=== PATIENT | female | born 1955 | race Caucasian/White ===

== ENCOUNTER → 2018-03-23 09:19 | Outpatient (CLI) | payer OTHER, SELFPAY ==
[2018-03-23 09:46] LABS: Hematocrit 39.6 % (37-47); Hemoglobin 12.8 g/dl (12.0-15.0); Mean Corp Hgb Conc 32.3 g/gl (32-36); Mean Corpuscular Hgb 31.9 pg (27.0-32.0); Mean Corpuscular Volume 98.8 fL (81-99); Mean Platelet Vol. 10.6 fl (6.2-12.0); Platelet Count 365 K/mm3 (150-450); RBC Distribution Width CV 14.3 % (11.6-14.6); Red Blood Count 4.01 M/mm3 (4.2-5.4)
[2018-03-23 09:50] LABS: Scan Indicated on CBC? Y/N NO
[2018-03-23 10:13] LABS: Cholesterol 166 mg/dL (200); Glucose 83 mg/dL (74-106); High Density Lipoprotein 58 mg/dL; Triglycerides 69 mg/dL; Very Low Density Lipoprotein 14 mg/dL (5-40)
--- OUTSIDE RECORDS SUMMARY | 2018-06-24 10:30 | XMS RPT_ITS ---
:1955 Author Organization OHIP Care Team Providers Name Role Phone WILMAR LOUIS CNP Attending Unavailable JUVENAL GOODE Primary Care Unavailable Wilmar Louis TOLL LINEMAN-[place] Attending Unavailable Wilmar Louis TOLL LINEMAN-C Referring Unavailable Wilmar Louis NP-[place] Primary Care Unavailable PROBLEMS PROBLEMS DATE TYPE CONDITION / CODE ATTENDING STATUS SOURCE 03/23/2018 Unknown Z00.00 - Encounter Horace Louis Zeenat for general adult Wilmar Abbott TOLL LINEMAN-[place] [facility] without abnormal Repository findings / Z00.00(ICD-10) 03/23/2018 Unknown Z13.6 - Encounter Heriberto Active Zeenat for screening for Wilmar Abbott TOLL [place] [facility] cardiovascular Hospital disorders / Repository Z13.6(ICD-10) 03/23/2018 Unknown E55.9 - Vitamin D Heriberto Active Zeenat deficiency, Wilmar Abbott TOLL LINEMAN-C [facility] unspecified / Hospital E55.9(ICD-10) Repository PROCEDURES PROCEDURES No Procedure Records FoundRESULTS RESULTS CBC-COMPLETE BLOOD CNT Collected: 03/23/2018 Status: F Source: ZEENAT NO DIFF 9:27 AM [facility] HOSPITAL REPOSITORY TYPE CODE TESTS RESULT OUT OF RANGE REFERENCE UNITS LAB L100.1000 4.4-11.0 K/mm3 Normal WBC 7.0 LAB L100.1200 4.2-5.4 M/mm3 Low RBC 4.01 LAB L100.1300 12.0-15.0 g/dl Normal HGB 12.8 LAB L100.1400 37-47 % Normal HCT 39.6 LAB L100.1500 81-99 fL Normal MCV 98.8 LAB L100.1600 27.0-32.0 pg Normal MCH 31.9 LAB L100.1700 32-36 g/gl Normal MCHC 32.3 LAB L100.1810 11.6-14.6 % Normal RDW CV 14.3 LAB L100.1820 35.1-43.9 fl High RDW SD 51.0 LAB L100.1900 150-450 K/mm3 Normal PLT 365 LAB L100.2000 6.2-12.0 fl Normal MPV 10.6 Performed By: #### L100.0500 #### [facility] [address] [place], [place], [address] LIPID PROFILE Collected: 03/23/2018 Status: F Source: SHELBY 9:27 AM [facility] REPOSITORY TYPE CODE TESTS RESULT OUT OF RANGE REFERENCE UNITS LAB L501.4900 200 mg/dL Normal CHOL 166 Result Comment: <200 mg/dL Desirable 200-240 mg/dL Borderline >240 mg/dL High Risk LAB L501.5000 mg/dL Normal TRIG 69 Result Comment: The drugs N-Acetylcysteine and Metamizole may falsely depress this assay. Serum Triglycerides Reference Interval Normal <150 mg/dL Borderline high 150 - 199 mg/dL High 200 - 499 mg/dL Very High > or = 500 mg/dL LAB L501.6400 mg/dL Normal HDL 58 Result Comment: The drugs N-Acetylcysteine and Metamizole may falsely depress this assay. Reference Range HDL <40 mg/dL Low HDL Cholesterol HDL >or= 60 mg/dL High HDL Cholesterol LAB L501.6500 0-130 mg/dL Normal LDL 94 LAB L501.6600 5-40 mg/dL Normal VLDL 14 Performed By: #### L500.4100, L501.0100 #### [facility] [address] [facility]. [place], [place], [id number] GLUCOSE Collected: 03/23/2018 Status: F Source: SHELBY 9:27 AM [facility] REPOSITORY TYPE CODE TESTS RESULT OUT OF RANGE REFERENCE UNITS LAB L501.0100 74-106 mg/dL Normal GLU 83 Result Comment: Please note revised GLUCOSE reference range effective 2017. Performed By: #### L500.4100, L501.0100 #### [facility] [address] [place], [address] VITAMIN D,25 HYDROXY Collected: 03/23/2018 Status: F Source: SHELBY 9:27 AM [facility] REPOSITORY TYPE CODE TESTS RESULT OUT OF REFERENCE UNITS RANGE LAB L506.1000 29.95-100.01 ng/mL Low Vitamin D 28.0 25-OH Result Comment: Vitamin D 25(OH) Status Range Deficiency <20 ng/mL (50nmol/L) Insuffciency 20 - 30 ng/mL (50 - 75 nmol/L) Sufficiency 30 - 100 ng/mL (75 - 250 nmol/L) Toxicity >100 ng/mL (>250 nmol/L) Performed By: #### L506.1000 #### [facility] [address] [place], [address] ID MAMMOGRAM SCREENING Observed: 03/15/2018 Status: F Source: [facility] BILATERAL W/LALA 10:30 AM FOUNDATION REPOSITORY ORIGINAL FROM: [place] [address] PROCEDURE FOR: ALINE DE LEON [address] [place] [address] Home: PID#: [id number] Exam#: [id number] : 1955 Age: 62 TO: WILMAR LOUIS APRN [place] [id number] #[id number] BILATERAL DIGITAL SCREENING MAMMOGRAM 3D/2D WITH CAD WITH MEDIOLATERAL OBLIQUE CRANIOCAUDAL: 03/15/2018 Comparison is made to exams dated: 02/09/2017 mammogram and 10/09/2015 mammogram - [facility]. The tissue of both breasts is heterogeneously dense. Current study was also evaluated with a Computer Aided Detection (CAD) system. There are benign scattered calcifications in both breasts. No significant masses, calcifications, or other findings are seen in either breast. There has been no significant interval change. IMPRESSION: BENIGN There is no mammographic evidence of malignancy. 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): RT RANDI (R)(M), [facility] letter sent: Normal BI-RADS 1&2 Mammogram BI-RADS: 2 Benign ALLERGIES ALLERGIES DATE TYPE / CODE NAME / CODE REACTION SEVERITY SOURCE 09/28/2014 Drug No Known Unknown [facility] Allergy/4160 Allergies/F00 Hospital 14805(SNOMED 4131964(RXNOR Repository CT) M) ENCOUNTERS ENCOUNTERS ADMIT/DISCHARGE ACCOUNT NUMBER ADMITTING ENCOUNTER LOCATION SOURCE CLASS 03/23/2018 [id number] Ambulatory [facility] ding:LAB Repository 03/15/2018/03/15/20 [id number] Ambulatory BBuilding: [address] Repository PAYERS PAYERS ENCOUNTER GUARANTOR PAYER SUBSCRIBER SOURCE 03/23/2018 DAYANA [id number] Primary [facility] DEBORAH STAPPLE Insurance:MEDICAL LONGDOB: [facility] [id number] [facility] [address]Ums: (330) Number: Repository [phone] (HP) [id number] Date:[id number] [address]PA: 03/23/2018 Secondary NOT GIVENUNK Zeenat Insurance:SELF PAY [facility] Number: Effective Repository Date:2018-03-23 03/15/2018 ALINE K Primary [facility] LONGDOB: Insurance:MEDICAL LONGDOB: [facility] [address] [id number] Repository deborah stAPPLE Number: deborah stAPPLE [place] [id number] [place], [place] [address]Qsj: (330) Date:2018-03-01 [address]19[address]Nhn: [id number] [phone] ()Tel: [phone]) Name:BPO B[address] () (WP) [address] [place], [place] [phone] (WP) [address]IQ:
== END ==
PROVIDERS: Family Provider Nurse Practitioner Family; PCP Nurse Practitioner Family; Referring Provider Nurse Practitioner Family; Visit Provider Nurse Practitioner Family
DX: Z00.00 Encounter for general adult medical examination without abnormal findings (principal); Z13.1 Encounter for screening for diabetes mellitus; Z13.6 Encounter for screening for cardiovascular disorders; E55.9 Vitamin D deficiency, unspecified
CPT/HCPCS: 36415; 80061; 82306; 82947; 85027

== ENCOUNTER → 2018-11-18 16:04 | Outpatient (CLI) | payer OTHER, SELFPAY ==
--- NOTE | 2018-11-18 | IMM_PTH ---
PATIENT: ALINE DE LEON LOC: [facility] U#:[id number] AGE/SX: 69/F ROOM: RE11/18/[address]: Dr. Sujit Britton MD : 1955 BED: DIS: SPEC #: [id number] RECD: 11/22/18 09:50 STATUS: SULEMA REQ #: [id number] ANAND: 11/18/18 00:[address]: Sujit Britton DEPT: IMMUNOHISTOCHEMISTRY RECD BY: Sowmya Kramer ENTERED: 11/22/18 09:52 SP TYPE: IMMUNO OTHR DR: Wilmar Louis, PRODUCTION ADMINISTRATOR-C Tissues: A - Duodenum, NOS B - Stomach, NOS Procedures: CD20 (add) CD45 (add) CD5 (add) CD79A (add) H.PYLORI (add) CD3 (initial) PHYSICIAN & INSTITUTION [place] [address] SPECIMEN INFORMATION: Tissue Source: A - Duodenal biopsy, B - Gastric antrum/body Clinical Info: Abdominal pain, weight loss Specimen Number: [id number] A & B CPT code: 65395 x2, 12845 x9 METHODOLOGY: Deparaffinized sections of prefer/formalin-fixed tissue or PAP/DQ stained slides are incubated with monoclonal/polyclonal antibodies/oligonucleotide probes. Localization is made via biotin free immunoperoxidase method. Appropriate controls are performed and reacted as expected. Results on target cell population are indicated in the following table: RESULTS: ANTIBODY / CLONE RESULT Block A CD3 (PS1) positive CD5 (SP10) positive CD20 (L26) positive CD45 (RP2/18) positive CD79a (11E3) positive Block B CD3 (PS1) positive CD5 (SP10) positive CD20 (L26) positive CD45 (RP2/18) positive CD79a (11E3) positive H Pylori (polyclonal) negative These tests were developed and their performance characteristics determined by [facility]. They may not have been cleared or approved by the U.S. Food and Drug Administration. The FDA has determined that such clearance or approval is not necessary. INTERPRETATION: A. Duodenal biopsy: Lymphoid aggregates, polytypic in nature, favor benign. Negative for involvement by lymphoma. B. Gastric antrum/body, biopsy: Lymphoid aggregates, polytypic in nature, favor benign. Negative for involvement by lymphoma. Negative for Helicobacter pylori organisms. SJ:hyacinth 11/22/18
--- NOTE | 2018-11-18 08:50 | EGD_PTH ---
PATIENT: ALINE DE LEON [facility]: [facility]#:[id number] AGE/SX: 69/F ROOM: RE11/18/[address]: Dr. Sujit Britton MD : 1955 BED: DIS: SPEC #: [id number] RECD: 11/18/18 15:23 STATUS: SULEMA TEO #: [id number] ANAND: 11/18/18 08:[address]: Sujit Britton DEPT: SURGICAL PATHOLOGY RECD BY: Stacy Roger ENTERED: 11/21/18 08:36 SP TYPE: EGD BIOPSY NATHAN DR: Wilmar Louis, CORRECTIONS IDENTIFICATION TECHNICIAN-C [facility] Tissues: A - Duodenum, NOS B - Gastric mucous membrane Procedures: Surgery Specimen Level IV HEADER OPERATION: EGD biopsy PRE-OP DIAGNOSIS: R10.9, abdominal pain, weight loss, celiac TISSUE SUBMITTED: A. Duodenal biopsy, rule out celiac and lymphoma, B. Gastric antrum/body, rule out gastritis MICROSCOPIC DIAGNOSIS A. Duodenal biopsy: Consistent with celiac disease. Negative for involvement by lymphoma. See microscopic description and comment. B. Gastric antrum/body, biopsy: Consistent with chronic lymphocytic gastritis. Negative for involvement by lymphoma. See microscopic description and comment. SJ:rg 11/22/18 COMMENT A. Immunohistochemistry ([id number]) supports the above diagnosis. B. Immunohistochemistry ([id number]) supports the above diagnosis and negative for H.pylori organisms.. Correlation with clinical, endoscopic findings and appropriate follow up are necessary.. MICROSCOPIC DESCRIPTION Slides are reviewed. A. The specimen shows fragments of duodenal mucosa with flattening of villi, increased number of intraepithelial lymphocytes and moderate chronic inflammatory cells infiltrate in the lamina propria and lymphoid aggregates. B. The specimen shows fragments of gastric mucosa with increased number of intraepithelial lymphocytes and moderate chronic inflammation and lymphoid aggregates. GROSS DESCRIPTION A - Received in fixative is one container labeled with the patient's name and designated duodenal biopsy. The specimen consists of multiple irregular fragments of light shi soft tissue that in aggregate measure 2 x 0.5 x 0.1 cm. The specimen is totally submitted in one cassette. B - Received in fixative is one container labeled with the patient's name and designated gastric antrum/body biopsy. The specimen consists of multiple irregular fragments of light shi soft tissue that in aggregate measure 1.5 x 0.3 x 0.1 cm. The specimen is totally submitted in one cassette. / SJ:rg 11/21/18 TC: CPT: 64650 x2
== END ==
PROVIDERS: Family Provider Nurse Practitioner Family; PCP Nurse Practitioner Family; Referring Provider Internal Medicine Gastroenterology; Visit Provider Internal Medicine Gastroenterology
DX: R10.9 Unspecified abdominal pain (principal); R63.4 Abnormal weight loss
CPT/HCPCS: 88305; 88341; 88342

== ENCOUNTER → 2018-11-23 08:30 | Outpatient (CLI) | payer OTHER, SELFPAY ==
[2018-11-24 16:07] LABS: Endomysial Antibody IgA Positive (Negative)
[2018-11-25 13:37] LABS: Immunoglobulin A 287 mg/dL (87-352); t-Transglutaminase IgA >100 U/mL (0-3)
== END ==
PROVIDERS: Family Provider Nurse Practitioner Family; PCP Nurse Practitioner Family; Referring Provider Internal Medicine Gastroenterology; Visit Provider Internal Medicine Gastroenterology
DX: K90.0 Celiac disease (principal)
CPT/HCPCS: 36415; 82306; 82784; 83516; 86255

== ENCOUNTER 2019-02-20 10:57 | Day surgery (SDC) | payer OTHER, SELFPAY ==
[2019-02-06 09:35] VITALS: BMI 25.2
--- NOTE | 2019-02-06 09:35 | HP_ITS ---
Intake Vital Signs 02/06/19 Body Mass Index (BMI) 25.2 02/06/19 Height 5 ft 4 in 02/06/19 Weight: 118 lb 02/06/19 Body Mass Index (BMI) 20.2 02/06/19 Blood Pressure 122/73 H 02/06/19 Blood Pressure Location Rt brachial 02/06/19 Blood Pressure Position Sitting 02/06/19 Respiratory Rate 16 02/06/19 Pulse Rate 75 02/06/19 Pulse Source Monitor 02/06/19 Temperature 97.9 F 02/06/19 Temperature Source Oral 02/06/19 Pulse Ox 100 02/06/19 Oxygen Delivery Method room air Intake Visit Reasons: Cholecystitis Chief Complaint: Multiple trauma - Pelvic fx, lumbar, fx, rib fx, scapular fx Allergies No Known Allergies Allergy (Verified 02/06/19 09:32) [facility] Medical History Hiatal hernia (Acute) Acid reflux (Acute) Constipation (Acute) Nausea & vomiting (Acute) Celiac disease (Acute) Pain (Acute) Constipation due to pain medication (Acute) Anemia (Acute) Fractures involving multiple body regions (Acute) Surgical History Hx of section (Acute) History of lumpectomy of right breast (Acute) Hx of appendectomy (Acute) Hx of colonoscopy (Acute) History of esophagogastroduodenoscopy (EGD) (Acute) Family History Mother Asthma Heart disease Hypertension CVA (cerebral vascular accident) Thyroid disorder Father Heart disease CVA (cerebral vascular accident) Social History (Updated 02/06/19 @ 09:35 by Woo Pereira MD) Smoking Status: Never smoker second hand exposure: No alcohol intake: never substance use type: does not use caffeine: Yes what type of physical activity do you participate in: none frequency: does not exercise HPI HPI HPI: ALINE DE LEON is a 63 F who presents to the office today for HPI HPI Surgical H&P: Yes HPI: ALINE DE LEON is a 63 F who presents to the office today for Evaluation of biliary colic this is a 63-year-old white female who has had multiple episodes of nausea and vomiting she has been worked up with an EGD which showed a small hiatal hernia she has been placed on PPIs twice daily yet she is still having difficulty with nausea and vomiting and at times it can be many hours after she eats. She has a diagnosis of celiac disease for many years but has been effectively treating herself by eliminating gluten. She has had a CAT scan of the abdomen and pelvis which showed either a stone or polyp in her gallbladder. It also showed a small hiatal hernia which was also confirmed with the EGD. She is afraid to eat now. She is losing weight now. Exam Const General: no acute distress, well developed, well hydrated Orientation: oriented to person, oriented to place, oriented to time [facility] Head: normocephalic, atraumatic Ears: external ears normal Mouth: moist mucous membranes Eyes Sclera: sclerae normal Pupils: normal by confrontation Neck Neck: no lymphadenopathy noted Neck mass: No Thyroid: thyroid normal, symmetrical Chest Chest palpation & inspection: normal inspection of the chest Resp Effort & Inspection: normal respiratory effort Auscultation: clear to auscultation bilaterally Percussion: percussion normal Cardio Rate: regular rate Rhythm: regular rhythm GI Palpation: soft, no hepatosplenomegaly, no masses, nontender Rectal Exam: other Other: Rectal exam deferred. Extrem General: normal to inspection, no clubbing, cyanosis or edema Assessment & Plan Problems 1. Non-intractable vomiting with nausea, unspecified vomiting type R11.2 2. Calculus of gallbladder with chronic cholecystitis without obstruction K80.10 Plan Reviewed the anatomy with the patient and discussed the procedure: Robotically assisted laparoscopic cholecystectomy with possible cholangiograms, possible open. Review risks including but not limited to bleeding, infection, hernia, bile leak, retained gallstones requiring another procedure ERCP- Endoscopic Retrograde Cholangiopancreatography, injury to another organ (bile ducts, common bile duct, small bowel, etc.) and conversion to an open procedure. All questions were answered. Medications Discontinued: potassium chloride ER Discontinued Reason: Pt no longer taking 20 mEq PO DAILYCM 30 tabs 0RF lidocaine 5% Discontinued Reason: Pt no longer taking 2 patches topical DAILY 60 patches 0RF oxycodone Discontinued Reason: Pt no longer taking 10 mg (2 x 5 mg) PO Q6H 30 tabs 0RF Coding Level of Care Code Off vis,new,level 3 Diagnoses Non-intractable vomiting with nausea, unspecified vomiting type R11.2 ??Vomiting type: unspecified ??Vomiting Intractability: non-intractable Calculus of gallbladder with chronic cholecystitis without obstruction K80.10 ??Cholelithiasis location: gallbladder ??Cholecystitis acuity: chronic 02/06/19 0935 <Electronically signed by Woo borrero MD> Date _ Woo Pereira MD I have re-examined the patient. There are no clinical changes since date of exam.
[2019-02-20] VITALS (7 sets, daily range): BP systolic 134–176; BP diastolic 65–91; PULSE 66–82; RESP 14–18; TEMP 36.2–36.7; O2SAT 93–100; BMI 19.9
--- NOTE | 2019-02-20 11:16 | EKG12_ITS ---
Test Reason : PREOP Blood Pressure : / mmHG Vent. Rate : 065 BPM Atrial Rate : 065 BPM P-R Int : 142 ms QRS Dur : 082 ms QT Int : 416 ms P-R-T Axes : 072 056 067 degrees QTc Int : 432 ms Normal sinus rhythm with sinus arrhythmia Normal ECG Confirmed by ANKITA CONNER, YOLY ([id number]), communications editor TATIANNA PEREZ ([id number]) on 02/22/2019 2:35:00 PM Referred By: Woo Pereira Confirmed By:YOLY LUCIANO MD
[2019-02-20 11:29] LABS: Hemoglobin 12.3 g/dL (12.0-15.0); Mean Corp Hgb Conc 32.4 g/dL (32-36); Mean Corpuscular Hgb 31.7 pg (27.0-32.0); Mean Corpuscular Volume 97.9 fL (81-99); Mean Platelet Vol. 10.3 fl (6.2-12.0); Platelet Count 332 K/mm3 (150-450); RBC Distribution Width CV 13.2 % (11.6-14.6); RBC Distribution Width SD 47.6 fl (35.1-43.9); Red Blood Count 3.88 M/mm3 (4.2-5.4); White Blood Count 6.1 K/mm3 (4.4-11.0)
[2019-02-20 11:42] LABS: Anion Gap 4 (5-15); BUN 12 mg/dL (7-18); BUN/Creat Ratio 25.9 RATIO (10-20); Chloride 107 mmol/L (98-107); Creatinine, Serum 0.46 mg/dL (0.55-1.02); EST Glomerular Filtration Rate 144 mL/min (>60); Est Glom Filt Rate - Afr Amer 175 mL/min (>60); Glucose 90 mg/dL (74-106); Potassium 3.9 mmol/L (3.5-5.1); Sodium Level 139 mmol/L (136-145)
[2019-02-20] MEDS: Lactated Ringers 1,000 ML 100 ML IV ×4 (12:00→12:22)
[2019-02-20] MEDS: Cefazolin 2 GM in 0.9% Normal Saline 100 ML IV (12:50)
--- NOTE | 2019-02-20 13:00 | GALL_PTH ---
PATIENT: ALINE DE LEON LOC: [facility] U#:[id number] AGE/SX: 63/F ROOM: RE02/20/[address]: Dr. Woo Pereira MD : 1955 BED: DIS: 02/20/2019 SPEC #: [id number] RECD: 02/20/19 15:52 STATUS: SULEMA RELeón #: [id number] ANAND: 02/20/19 13:[address]: Woo Pereira DEPT: SURGICAL PATHOLOGY RECD BY: Jefferson Gerard ENTERED: 02/21/19 08:19 SP TYPE: JUAN JOSE EVANS DR: Wilmar Louis, MEDICAL FILE CLERK-C Tissues: Gallbladder, NOS Procedures: Surgery Specimen Level III HEADER OPERATION: Robotic laparoscopic cholecystectomy PRE-OP DIAGNOSIS: Non-intractable vomiting with nausea; calculus of gallbladder, chronic cholecystitis TISSUE SUBMITTED: Gallbladder MICROSCOPIC DIAGNOSIS Gallbladder, cholecystectomy: Minimal chronic cholecystitis. No stones are identified in the container or in the gallbladder. JACQUI:hyacinth 02/22/19 MICROSCOPIC DESCRIPTION Slides are reviewed. GROSS DESCRIPTION Received is one container labeled with the patient's name and designated gallbladder. The specimen consists of a gallbladder measuring 8 cm in length and 4 cm in diameter. The external surface is pink-shi, smooth and glistening for the most part. Focally it is granular, hemorrhagic and contains cautery artifact. The gallbladder contains green-yellow mucoid bile. No stones are identified in the container or in the gallbladder. The mucosa is bile-stained and without any mass lesions. The gallbladder wall measures 0.1 cm in thickness. Monument Erector sections from the gallbladder and the cystic duct are submitted in one cassette. / JACQUI:hyacinth 02/21/19 TC:3 CPT: 25365
[2019-02-20] MEDS: Bupivacaine Mpf 0.5% 30 ML VIAL (13:17)
--- NOTE | 2019-02-20 13:54 | PCM.OPRPT ---
Problem List (1) Calculus of gallbladder with chronic cholecystitis without obstruction Status: Chronic (2) RUQ abdominal pain Status: Acute Report of Operation Date of Procedure: 02/20/19 Pre-Operative Diagnosis: Chronic cholecystitis with cholelithiasis. Right upper quadrant abdominal pain Post-Operative Diagnosis: Same Surgery/Procedure Performed:: Robotically assisted laparoscopic cholecystectomy Type of Anesthesia:: General Anesthesiologist: Jarett Mccurdy Estimated Blood Loss (mL): < 25 cc Fluids Replaced: 1400 cc LR Description of Procedure: Patient was brought into the operating room. Placed in the supine position. Under excellent general trach intubation bed was turned tangentially placed at a 45 degree angle then sterilely prepped and draped in usual fashion. Local was injected infra umbilically dissection was carried down to the fascia the fascia grasped with Diana varies needle was placed inside the abdomen the abdomen was insufflated to 15 torr. A 10/12 trocar was placed without difficulty. It was flank by 2 #8 trochars and then further laterally a #5 trocar was placed. All of these under direct visualization without injury to underlying structures. Robot was docked. Moderate amount of adhesions were taken down off of the gallbladder itself. Fundus was grasped and retracted in a cephalad direction. I dissected out the cystic duct with the use of right hook I dissected the cystic artery as well as posterior to this to the abdomen. Once I had the cystic duct and cystic artery completely dissected free hemoclips were placed on the duct and the duct was ligated in similar fashion the Hemalock were placed on the artery and the artery was ligated. I deliver the gallbladder from gallbladder bed with use of electrocautery had no spillage of bile or stones. Placed a specimen a specimen bag delivered through the umbilical port without difficulty. Electrocautery was used for good hemostasis in the base trochars were removed under direct visualization good hemostasis was noted. Fascia the umbilical port was closed with a [id number] stitch of 0 Vicryl. Skin incisions were closed with some particular stitches of 4-0 Monocryl. Steri-Strips were applied. Sterile dressings were applied. Patient tolerated the procedure well. - Admit VTE Documentation VTE Present on Admission: No VTE Mechan Device Prophylaxis: SCD's VTE Pharm Prophylaxis ordered?: No Reason prophylaxis not ordered:: Treatment Not Indicated
--- NOTE | 2019-02-20 13:57 | PCM.DC.GB ---
Discharge Diet: Light diet - advance as tolerated Discharge Activity: May Not Drive - for 2-3 days or while taking narcotic pain medications., - - Do not drive, work heavy equipment or sign legal documents for 24 hours. May shower in (days): 1 - with the bandage in place. Additional Activity Instructions:: Pain medication may cause nausea. You should typically eat light foods as you take your pain medications. Pain medication may also cause constipation. If this is a problem for you, please discuss with your doctor. Call your doctor if your incision/area has: Continuous Slow Oozing, Sudden Increased Bleeding, Increased Pain/ Swelling, Increased Redness, Foul Smelling Discharge Call your doctor if you observe: Fever of 101 or Higher Suture Line Care: Avoid Pulling/Pushing, Avoid Pinching/Bending Additional Dressing/Incision Instructions:: Leave operative bandaids on for 2 days. When you remove dressing, leave Steri-Strips on until your follow-up appointment, or until the Steri-Strips fall off on their own. Allergies/Adverse Reactions: Allergies No Known Allergies Allergy (Verified 02/20/19 11:48) Medications to take at Discharge calcium carbonate 500 mg calcium (1,250 mg) tablet 500 mg PO BID 02/06/19 ergocalciferol (vitamin D2) 50,000 unit capsule 50,000 unit PO QWEEK #13 cap 02/06/19 omeprazole 20 mg capsule,delayed release 20 mg PO BID cap 02/06/19 Oxycodone HCl/Acetaminophen [Percocet 5/325] 1 - 2 tablet PO Q4H PRN PRN 7 Days #30 tablet 02/20/19 The following prescriptions were given: Oxycodone HCl/Acetaminophen [Percocet 5/325] 1 - 2 tablet PO Q4H PRN PRN 7 Days #30 tablet PRN Reason: Pain Transmission Status: Sent to [id number] Primary Care Physician: Wilmar Louis, GUSTAVO-C [Primary Care Provider] - Test Results: Test results from this visit will be discussed in further detail at your follow-up appointment, if applicable. Please Follow Up With: Woo Pereira MD - Please call [phone] to schedule an appointment. When: 7 days after your surgery.
[2019-02-20] MEDS: Acetaminophen 325 MG Tablet PO (16:01)
[2019-02-20] MEDS: oxyCODONE 5 MG Tablet PO (16:01)
== END 2019-02-20 16:44 | disposition home or self-care (01) ==
LOC: SDC 10:57 → AC 11:29
PROVIDERS: Anesthesiology; Family Provider Nurse Practitioner Family; PCP Nurse Practitioner Family; Referring Provider Surgery; Visit Provider Surgery
PROC: 0FT44ZZ Resection of Gallbladder, Percutaneous Endoscopic Approach (ICD-10-PCS; CPT 47562; principal; 2019-02-20 12:45)
DX: K80.10 Calculus of gallbladder with chronic cholecystitis without obstruction (principal); K82.8 Other specified diseases of gallbladder; K21.9 Gastro-esophageal reflux disease without esophagitis; Z86.73 Personal history of transient ischemic attack (TIA), and cerebral infarction without residual deficits
CPT/HCPCS: 00790; 47562; S2900; 36415; 80048; 85027; 88304; 93005; J7120; J2405

== ENCOUNTER → 2019-03-23 09:18 | Outpatient (CLI) | payer OTHER, SELFPAY ==
[2019-02-20 11:49] VITALS: BMI 19.9
[2019-03-23 11:16] LABS: Vitamin D,25 Hydroxy 42.6 ng/mL (29.95-100.01)
[2019-03-23 11:31] LABS: Cholesterol 156 mg/dL (200); Glucose 82 mg/dL (74-106); High Density Lipoprotein 57 mg/dL; Triglycerides 85 mg/dL; Very Low Density Lipoprotein 17 mg/dL (5-40)
== END ==
PROVIDERS: Family Provider Nurse Practitioner Family; PCP Nurse Practitioner Family; Referring Provider Nurse Practitioner Family; Visit Provider Nurse Practitioner Family
DX: Z13.220 Encounter for screening for lipoid disorders (principal); Z13.1 Encounter for screening for diabetes mellitus; E55.9 Vitamin D deficiency, unspecified
CPT/HCPCS: 36415; 80061; 82306; 82947

== ENCOUNTER → 2019-04-18 10:01 | Outpatient (CLI) | payer OTHER, SELFPAY ==
[2019-02-20 11:49] VITALS: BMI 19.9
--- NOTE | 2019-04-18 10:18 | RAD_ITS ---
STUDY: X-RAY CHEST REASON FOR EXAM: Female, 63 years old. COUGH, SOB TECHNIQUE: PA and lateral views of the chest. COMPARISON: None. FINDINGS: The lungs are clear and expanded. There is no demonstrated pleural abnormality. Normal size heart. Normal mediastinum and natividad. Normal visualized pulmonary arteries. There are calcified plaques of the aortic arch. Normal visualized thoracic spine. Normal visualized ribs, clavicles, and shoulders. There is no demonstrated abnormality of the visualized soft tissue structures of the upper abdomen. RAD/Chest PA and Lateral IMPRESSION: Calcific plaques of the aortic arch. No acute cardiopulmonary disease process is seen. Electronically Signed: Michelet Jung MD at 23:12 EST , Service support ,
[2019-04-18 13:02] LABS: ALB/GLOB Ratio 0.8 RATIO (0.9-2.4); AST(SGOT) 29 U/L (15-37); Alanine Aminotransfer ALT/SGPT 40 U/L (13-56); Alkaline Phosphatase 153 U/L (45-117); Anion Gap 4 (5-15); BUN 8 mg/dL (7-18); BUN/Creat Ratio 15.9 RATIO (10-20); Calcium,Total 9.1 mg/dL (8.5-10.1); Chloride 108 mmol/L (98-107); EST Glomerular Filtration Rate 131 mL/min (>60); Est Glom Filt Rate - Afr Amer 158 mL/min (>60); Globulin 3.9 g/dL (2.2-4.2); Glucose 49 mg/dL (74-106); Potassium 4.4 mmol/L (3.5-5.1); Protein, Total 6.9 g/dL (6.4-8.2); Sodium Level 140 mmol/L (136-145)
[2019-04-18 13:45] LABS: Absolute Lymphocyte Count 2.29 X10^3/uL (0.83-4.51); Absolute Neutrophil Count 2.8 X10^3/uL (2.0-7.7); Basophil# 0.05 X10^3/uL; Basophil% 0.8 % (0-1); Eosinophil# 0.55 X10^3/uL; Eosinophils% 8.4 % (0-5); Hematocrit 39.3 % (37-47); Hemoglobin 12.4 g/dL (12.0-15.0); Lymphocyte # 2.29 X10^3/ul (4.0); Lymphocyte % 34.9 % (19-41); Mean Corp Hgb Conc 31.6 g/dL (32-36); Mean Corpuscular Hgb 31.2 pg (27.0-32.0); Mean Platelet Vol. 10.2 fl (6.2-12.0); Monocyte# 0.82 X10^3/uL; Monocyte% 12.5 % (0-10); NRBC Flagged by Analyzer 0 % (0-5); Neutrophil # 2.83 X10^3/uL (2.7-7.7); Neutrophil % 42.9 % (47-70); Platelet Count 430 K/mm3 (150-450); RBC Distribution Width CV 13.5 % (11.6-14.6); RBC Distribution Width SD 49.1 fl (35.1-43.9); Red Blood Count 3.97 M/mm3 (4.2-5.4); White Blood Count 6.6 K/mm3 (4.4-11.0)
== END ==
PROVIDERS: Family Provider Nurse Practitioner Family; PCP Nurse Practitioner Family; Referring Provider Nurse Practitioner Family; Visit Provider Nurse Practitioner Family
DX: R06.2 Wheezing (principal); R05 Cough
CPT/HCPCS: 36415; 71046; 80053; 85025

== ENCOUNTER 2020-12-14 11:02 | Emergency (ER) | payer MEDICARE, BC, SELFPAY ==
[2020-12-14 11:03] VITALS: BP 188/84; PULSE 72; RESP 16; TEMP 36.7; O2SAT 100; BMI 22.3
--- NOTE | 2020-12-14 11:15 | EKG12_ITS ---
Test Reason : STROKE Blood Pressure : / mmHG Vent. Rate : 060 BPM Atrial Rate : 060 BPM P-R Int : 138 ms QRS Dur : 082 ms QT Int : 412 ms P-R-T Axes : 069 046 064 degrees QTc Int : 412 ms Normal sinus rhythm Normal ECG Confirmed by BUCK CONNER, LEON ([id number]), manuscript editor TITO CEBALLOS ([id number]) on 12/16/2020 1:30:19 PM Referred By: PC Confirmed By:LEON JANE MD
--- NOTE | 2020-12-14 11:15 | CT_ITS ---
STUDY: CT HEAD STROKE PROTOCOL W/O CONTRAST INJECTION REASON FOR EXAM: Female, 65 years old. Neuro deficit, acute, stroke suspected RADIATION DOSAGE (If Supplied By Facility): CTDIvol = ( 44 ) mGy, DLP = ( 745 ) mGycm TECHNIQUE: Transaxial CT imaging of the brain was performed without administration of intravenous contrast material. Individualized dose optimization techniques were used for this CT. COMPARISON: No relevant priors. FINDINGS: Normal soft tissue structures. Normal calvarium. Normal size ventricles and extra-axial spaces for the patient''s age. Normal white matter tracts of the cerebral hemispheres. Normal basal ganglia and thalami. Normal brainstem. Normal cerebellum. There is no intracranial hemorrhage. There are no findings of an acute ischemic infarction. Normal visualized paranasal sinuses. ASPECT score: 10 CT/STROKE Brain/Head without Cont IMPRESSION: No evidence of acute intracranial bleed, mass or ischemia. N.B. : The above Results were Read Back by Galo Majano DO to aleks rodríguez MD, and understanding confirmed on 12/14/2020 11:40:21 (ET). Electronically Signed: Galo Majano DO at 11:41 EDT , Service support ,
--- NOTE | 2020-12-14 11:17 | CT_ITS ---
STUDY: CTA HEAD AND NECK WITH CONTRAST REASON FOR EXAM: Female, 65 years old. Neuro deficit, acute, stroke suspected RADIATION DOSAGE (If Supplied By Facility): CTDIvol = ( 15.08 ) mGy, DLP = ( 460.04 ) mGycm TECHNIQUE: CT angiography was performed with a multi-detector CT scanner. Data acquisition was obtained from the skull base through the vertex following intravenous administration of IV 100mL Isovue-370. MIP images were reconstructed from the axial data set. Post-processing of the angiographic images was performed, with multiplanar reformation and 3D reconstruction. Individualized dose optimization techniques were used for this CT. COMPARISON: No relevant priors. FINDINGS: Normal bilateral petrous carotid arteries. Normal right cavernous carotid artery with a normal supraclinoid bifurcation. Normal left cavernous carotid artery with a normal supraclinoid bifurcation. There is non-visualization of the right A1 segment of the anterior cerebral arteries consistent with either aplastic development or an occlusion. Normal left A1 segments of the anterior cerebral artery. Normal intact anterior communicating artery (ACOM). Normal bilateral A2 segments of the anterior cerebral arteries. Normal right M1 and M2 segments of the middle cerebral arteries, with a normal M1 bifurcation. Normal left M1 and M2 segments of the middle cerebral arteries, with a normal M1 bifurcation. There is non-visualization of the right posterior communicating artery (PCOM). There is non-visualization of the left posterior communicating artery (PCOM). Right vertebral artery V4 segment terminates in the posterior circulation. Normal basilar artery with a normal basilar bifurcation. The visualized bilateral superior cerebellar (SCA) arteries are normal. Normal bilateral P1, P2 and visualized P3 segments of the posterior cerebral arteries. There is no demonstrated aneurysm of the [place]. There is no demonstrated abnormality of the visualized brain. AORTIC ARCH: Normal visualized aortic arch. Normal origins of the brachiocephalic, left common carotid, and left subclavian arteries. RIGHT CAROTID ARTERIES: Normal right common carotid artery (CCA). Normal right common carotid bulb. Normal origin of the right internal carotid (ICA) artery without a hemodynamically significant stenosis. Normal visualized cervical portion of the right internal carotid artery. Normal origin of the right external carotid artery (ECA). LEFT CAROTID ARTERIES: Normal left common carotid artery (CCA). Normal left common carotid bulb. Normal origin of the left internal carotid (ICA) artery without a hemodynamically significant stenosis. Normal visualized cervical portion of the left internal carotid artery. Normal origin of the left external carotid artery (ECA). VERTEBRAL ARTERIES: There is enhancement within the bilateral vertebral arteries with a small right vertebral artery, and a dominant left vertebral artery. Right V4 segment terminates to the posterior circulation. CT/STROKE CTA Head AND Neck W/Con IMPRESSION: No evidence of significant steno-occlusive disease or aneurysm. N.B. : The above Results were Read Back by Galo Majano DO to aleks rodríguez MD, and understanding confirmed on 12/14/2020 11:49:04 (ET). Electronically Signed: Galo Majano DO at 11:49 EDT , Service support ,
[2020-12-14 11:18] VITALS: BP 191/104; PULSE 81; RESP 16; O2SAT 99
--- NOTE | 2020-12-14 11:18 | ED.VIS.STROK ---
HPI History of Present Illness Chief Complaint: Neuro S/Sx Narrative Narrative: Presents with 1 hour of left facial droop and difficulty speaking which seems to have improved as she got to the ED. Apparently she has had some twitching around her left eye for about a month but no droop on the left face. She has no other weakness no paresthesias she has no confusion she has no vision changes. No recent fever chills cough or congestion. PFSH PFS Medical History Acid reflux Anemia Celiac disease Constipation Constipation due to pain medication Fractures involving multiple body regions Hiatal hernia Nausea & vomiting Pain Home Medications calcium carbonate 500 mg calcium (1,250 mg) tablet 500 mg PO BID 02/06/19 [History Last Taken Unknown] ergocalciferol (vitamin D2) 1,250 mcg (50,000 unit) capsule 50,000 unit PO CHAN #13 cap 02/06/19 [History Last Taken Unknown] Allergy/AdvReac Type Severity Reaction Status Date / Time No Known Allergies Allergy Verified 12/14/20 11:03 Family History Mother Asthma Heart disease Hypertension CVA (cerebral vascular accident) Thyroid disorder Father Heart disease CVA (cerebral vascular accident) Surgical History History of esophagogastroduodenoscopy (EGD) History of lumpectomy of right breast Hx laparoscopic cholecystectomy Hx of appendectomy Hx of section Hx of colonoscopy Social History (Updated 03/01/19 @ 10:34 by Diana CARABALLO PA-C) Smoking Status: Unknown if ever smoked second hand exposure: No alcohol intake: never substance use type: does not use caffeine: Yes what type of physical activity do you participate in: none frequency: does not exercise ROS ROS ED ROS Narrative Past medical history: Reviewed Medications: Reviewed Social history: Noncontributory Review of systems: All systems negative except as indicated General: No fever Eyes: No visual changes ENT: No upper airway congestion, normal voice Neck: No neck pain Cardiovascular: No chest pain Respiratory: No shortness of breath or cough Gastrointestinal: No abdominal pain, nausea vomiting or diarrhea Genitourinary: No dysuria Musculoskeletal: Denies myalgias no difficulty with ambulation Skin: No rash Neurological: No memory loss, confusion or any focal weakness. Left-sided facial droop which improved Psych: No recent behavioral changes Hematologic: No easy bleeding or easy bruising EXAM Physical Exam Narrative Exam Narrative: Physical exam General: Well nourished, Well developed, No Acute Distress Head: Normocephalic, Atraumatic Eyes: Conjunctiva not pale ENT: Moist mucous membranes Neck: Supple, Nontender, No lymphadenopathy Cardiovascular: Regular rate, Regular rhythm Respiratory: No distress, CTA bilaterally Abdomen: Soft, Nontender, Nondistended Back: Nontender, Normal Inspection. Negative for: CVA tenderness Extremities: Nontender, No edema Skin: Normal color, No rash Neurological: Alert, Normal Strength, Normal Sensation. Left facial droop. This is very subtle with only loss of nasolabial fold. Otherwise normal neurological exam. See NIH stroke scale below. Psychological: Normal affect Const Vital Signs: 12/14/20 11:03 12/14/20 11:18 12/14/20 11:28 Temperature 98.0 F Temperature Source Temporal Pulse Rate 72 81 Respiratory Rate 16 16 Blood Pressure 188/84 H 191/104 H Blood Pressure Mean 118 133 Pulse Ox 100 99 Oxygen Delivery Method Room Air Room Air Room Air 12/14/20 11:45 12/14/20 12:15 12/14/20 13:00 Temperature Temperature Source Pulse Rate 77 74 76 Respiratory Rate 16 16 16 Blood Pressure 173/86 H 177/99 H 175/85 H Blood Pressure Mean 115 125 115 Pulse Ox 99 98 98 Oxygen Delivery Method Room Air Room Air Room Air STROKE Vital Signs/Narrative: Vital Signs Temp Pulse Resp BP Pulse Ox 12/14/20 13:00 76 16 175/85 H 98 12/14/20 12:15 74 16 177/99 H 98 12/14/20 11:45 77 16 173/86 H 99 12/14/20 11:18 81 16 191/104 H 99 12/14/20 11:03 98.0 F 72 16 188/84 H 100 NIHSS Initial: 1a Level of Consciousness: 0 1b LOC Questions (Score 2 if aphasic/stupor): 0 1c LOC Commands (Only score 1st attempt): 0 2 Best Gaze (If aphasic, use reflexive mvmts.): 0 3 Visual: 0 4 Facial Palsy: 1 5 Motor Arm Left: 0 6 Motor Leg Right: 0 6 Motor Leg Left: 0 7 Limb ataxia (Only + if out of proportion): 0 8 Sensory (Aphasia/stupor=0 or 1, coma=2): 0 9 Best Language: 0 10 Dysarthria (mute, coma=2, intubated=UN): 0 11 Extinction and Inattention (only scored if +): 0 Total Score: 1 MDM MDM MDM Narrative Medical decision making narrative: Patient remained asymptomatic in the ED other than the slight decrease in the nasolabial folds. She actually had a couple episodes of what she was describing and these now seem like they are spasms. I discussed with stroke neurology who also saw the patient and agree that TPA is not needed. Patient had a normal MRI CTA of the head and neck and CT, I do not believe the patient would benefit from admission. Patient can follow-up. Lab Data Labs: Laboratory Results - last 24 hr 12/14/20 12/14/20 12/14/20 11:20 11:20 11:20 WBC 7.9 RBC 4.04 L Hgb 12.9 Hct 39.9 MCV 98.8 MCH 31.9 MCHC 32.3 RDW Std Deviation 49.3 H RDW Coeff of [place] 13.3 Plt Count 395 MPV 10.4 Immature Gran % (Auto) 0.300 Neut % (Auto) 35.0 L Lymph % (Auto) 44.3 H [place] % (Auto) 12.1 H Eos % (Auto) 7.3 H Baso % (Auto) 1.0 Absolute Neuts (auto) 2.8 Absolute Lymphs (auto) 3.48 Nucleated RBC % 0 PT 12.4 INR 1.0 APTT 26.2 Sodium 138 Potassium 3.9 Chloride 108 H Carbon Dioxide 28.0 Anion Gap 2 L BUN 13 Creatinine 0.48 L Estim Creat Clear Calc 100.90 Est GFR (MDRD) Af Amer 168 Est GFR (MDRD) Non-Af 139 BUN/Creatinine Ratio 27.3 H Glucose 100 Calcium 8.9 Troponin I High Sens 5 POC Glucose 12/14/20 11:20 WBC RBC Hgb Hct MCV MCH MCHC RDW Std Deviation RDW Coeff of [place] Plt Count MPV Immature Gran % (Auto) Neut % (Auto) Lymph % (Auto) [place] % (Auto) Eos % (Auto) Baso % (Auto) Absolute Neuts (auto) Absolute Lymphs (auto) Nucleated RBC % PT INR APTT Sodium Potassium Chloride Carbon Dioxide Anion Gap BUN Creatinine Estim Creat Clear Calc Est GFR (MDRD) Af Amer Est GFR (MDRD) Non-Af BUN/Creatinine Ratio Glucose Calcium Troponin I High Sens POC Glucose 103 Radiography Diagnostic Testing: Radiology Impression Brain CT 12/14/20 11:15 IMPRESSION: No evidence of acute intracranial bleed, mass or ischemia. N.B. : The above Results were Read Back by Galo Majano DO to gonzalo rodríguez MD, and understanding confirmed on 12/14/2020 11:40:21 (ET). Electronically Signed: Galo Majano DO at 11:41 EDT , Service support , ADDENDUM: 12/14/20 1148 IMPRESSION: No evidence of acute intracranial bleed, mass or ischemia. N.B. : The above Results were Read Back by Galo Majano DO to gonzalo rodríguez MD, and understanding confirmed on 12/14/2020 11:40:21 (ET). Electronically Signed: Galo Majano DO at 11:41 EDT , Service support , Head/Neck CTA 12/14/20 11:17 IMPRESSION: No evidence of significant steno-occlusive disease or aneurysm. N.B. : The above Results were Read Back by Galo Majano DO to gonzalo rodríguez MD, and understanding confirmed on 12/14/2020 11:49:04 (ET). Electronically Signed: Galo Majano DO at 11:49 EDT , Service support , ADDENDUM: 12/14/20 1156 IMPRESSION: No evidence of significant steno-occlusive disease or aneurysm. N.B. : The above Results were Read Back by Galo Majano DO to gonzalo rodríguez MD, and understanding confirmed on 12/14/2020 11:49:04 (ET). Electronically Signed: Galo Majano DO at 11:49 EDT , Service support , Brain MRI 12/14/20 11:51 IMPRESSION: Involutional changes of the brain, as described above. No acute infarct. Electronically Signed: Wilmar Platt MD at 13:29 EDT Tel , Service support , Chest X-Ray 12/14/20 11:57 IMPRESSION: No radiographic evidence of acute cardiopulmonary disease. at 1233 Reported and signed by: Cristian Camp MD Electronically Signed: Cristian Camp MD at 12:32 EDT Tel , Service support , Discharge Plan Triage Chief Complaint: Neuro S/Sx ED Provider: Gonzalo Rodríguez Dx/Rx/DC Orders Prescriptions: No Action ergocalciferol (vitamin D2) 50,000 unit capsule 50,000 unit PO CHAN Qty: 13 RF: 0 calcium carbonate [Calcium 500] 500 mg calcium (1,250 mg) tablet 500 mg PO BID RF: 0 Primary Care Provider: Wilmar Louis NP
[2020-12-14 11:25] VITALS: BMI 21.8
[2020-12-14 11:26] LABS: Bedside Glucose 103 mg/dL (70-110)
[2020-12-14 11:33] LABS: Absolute Lymphocyte Count 3.48 X10^3/uL (0.83-4.51); Absolute Neutrophil Count 2.8 X10^3/uL (2.0-7.7); Basophil# 0.08 X10^3/uL; Eosinophil# 0.57 X10^3/uL; Eosinophils% 7.3 % (0-5); Hematocrit 39.9 % (37-47); Hemoglobin 12.9 g/dL (12.0-15.0); Lymphocyte # 3.48 X10^3/ul (0.83-4.51); Lymphocyte % 44.3 % (19-41); Mean Corp Hgb Conc 32.3 g/dL (32-36); Mean Corpuscular Hgb 31.9 pg (27.0-32.0); Mean Corpuscular Volume 98.8 fL (81-99); Mean Platelet Vol. 10.4 fl (6.2-12.0); Monocyte# 0.95 X10^3/uL; Monocyte% 12.1 % (0-10); NRBC Flagged by Analyzer 0 % (0-5); Neutrophil # 2.76 X10^3/uL (2.7-7.7); Platelet Count 395 K/mm3 (150-450); RBC Distribution Width CV 13.3 % (11.6-14.6); RBC Distribution Width SD 49.3 fl (35.1-43.9); Red Blood Count 4.04 M/mm3 (4.2-5.4); White Blood Count 7.9 K/mm3 (4.4-11.0)
[2020-12-14 11:43] LABS: Partial Thromboplast Time 26.2 Seconds (24.1-36.2); Prothrombin Time (Protime)PT. 12.4 SECONDS (11.7-14.9)
[2020-12-14 11:45] VITALS: BP 173/86; PULSE 77; RESP 16; O2SAT 99
[2020-12-14 11:45] LABS: Anion Gap 2 (5-15); BUN 13 mg/dL (7-18); BUN/Creat Ratio 27.3 RATIO (10-20); Calcium,Total 8.9 mg/dL (8.5-10.1); Chloride 108 mmol/L (98-107); Creatinine, Serum 0.48 mg/dL (0.55-1.02); EST Glomerular Filtration Rate 139 mL/min (>60); Est Glom Filt Rate - Afr Amer 168 mL/min (>60); Glucose 100 mg/dL (74-106); Potassium 3.9 mmol/L (3.5-5.1); Sodium Level 138 mmol/L (136-145); Troponin-I HS 5 pg/mL (3.0-54.0)
--- NOTE | 2020-12-14 11:51 | MRI_ITS ---
STUDY: MRI BRAIN WITHOUT CONTRAST REASON FOR EXAM: Female, 65 years old. tia, left facial droop, eye twitching, speech difficulty TECHNIQUE: Standardized multiplanar fat and water weighted pulse sequences were obtained. COMPARISON: CT earlier today FINDINGS: There is mild cerebral atrophy with widening of the extra-axial spaces and ventricular dilatation. There are a limited number of small white matter hyperintensities, distributed throughout the deep white matter tracts of the cerebral hemispheres, consistent with mild chronic white matter ischemic changes. There is no evidence for recent intracranial ischemia or other cause of cytotoxic edema on diffusion weighted imaging (DWI). Normal T2* images of the brain without demonstrated susceptibility artifact. There is no demonstrated hemosiderin stain. Normal bilateral basal ganglia. Normal thalami. There is no extra-axial fluid accumulation. Normal flow voids within the major intracranial circulation suggesting patency by spin echo criteria. Normal sella turcica, pituitary gland, infundibular stalk, optic chiasm and hypothalamus. Normal tectal plate and pineal gland. Normal midbrain, mile and medulla. Normal cerebellum. Normal basal cisterns. Normal bilateral temporal bones. Normal bilateral internal auditory canals. No demonstrated orbital abnormality, within the constraints of a routine brain study. Mucosal thickening of the maxillary sinuses consistent with chronic sinusitis. Normal calvarium and skull base. Normal visualized soft tissue structures. Normal visualized upper cervical spine. MRI/Brain without Contrast IMPRESSION: Involutional changes of the brain, as described above. No acute infarct. Electronically Signed: Wilmar Platt MD at 13:29 EDT Tel , Service support ,
--- NOTE | 2020-12-14 11:57 | RAD_ITS ---
EXAM: XR CHEST, 1 VIEW : 1955 CLINICAL INDICATION: Neuro deficit, acute, stroke suspected TECHNIQUE: Frontal view of the chest. This report was created using [employer] report generation technology. COMPARISON: 04/18/2019 FINDINGS: LUNGS AND PLEURAL SPACES: Unremarkable. No consolidation or edema. No pneumothorax. No effusion. HEART: Unremarkable. Cardiac silhouette not enlarged. MEDIASTINUM: Central airways and mediastinal contour are unremarkable. BONES/JOINTS: Unremarkable. SOFT TISSUES: Unremarkable. RAD/Chest 1 View IMPRESSION: No radiographic evidence of acute cardiopulmonary disease. at 1233 Reported and signed by: Cristian Camp MD Electronically Signed: Cristian Camp MD at 12:32 EDT Tel , Service support ,
[2020-12-14 12:15] VITALS: BP 177/99; PULSE 74; RESP 16; O2SAT 98
--- NOTE | 2020-12-14 12:19 | ED.RN ---
pt has episodes approx every 30 min of eye twitching, left facial droop. occured while on video call with neurologist. when droop increases during these episodes, pt's speech becomes mildy slurred. pt being transported to MRI at this time.
[2020-12-14 13:00] VITALS: BP 175/85; PULSE 76; RESP 16; O2SAT 98
[2020-12-14 13:30] VITALS: BP 144/79; PULSE 67; RESP 18; O2SAT 98
== END 2020-12-14 14:00 | disposition home or self-care (01) ==
PROVIDERS: Emergency Provider Emergency Medicine; PCP Nurse Practitioner Family
DX: R29.810 Facial weakness (principal); R47.81 Slurred speech; R42 Dizziness and giddiness; H52.532 Spasm of accommodation, left eye; K90.0 Celiac disease; D64.9 Anemia, unspecified; Z82.0 Family history of epilepsy and other diseases of the nervous system
CPT/HCPCS: 70450; 70496; 70498; 70551; 71045; 80048; 82962; 84484; 85025; 85610; 85730; 93005; 99283; Q9967; A4216

== ENCOUNTER 2020-12-17 09:40 | Emergency (ER) | payer MEDICARE, BC, SELFPAY ==
[2020-12-17 09:42] VITALS: BP 190/85; PULSE 79; RESP 18; TEMP 36.6; O2SAT 98; BMI 22.8
[2020-12-17 09:45] VITALS: BMI 22.8
[2020-12-17 09:51] LABS: Bedside Glucose 104 mg/dL (70-110)
--- NOTE | 2020-12-17 09:53 | ED.RN ---
AWARE STROKE SYMPTOM
--- NOTE | 2020-12-17 10:53 | EKG12_ITS ---
Test Reason : NEURO Blood Pressure : / mmHG Vent. Rate : 067 BPM Atrial Rate : 067 BPM P-R Int : 140 ms QRS Dur : 082 ms QT Int : 400 ms P-R-T Axes : 062 045 063 degrees QTc Int : 422 ms Normal sinus rhythm Normal ECG Confirmed by ANKITA CONNER, YOLY ([id number]), editor in chief newspaper TITO CEBALLOS ([id number]) on 12/18/2020 1:21:04 PM Referred By: LY/AUSTYN Confirmed By:YOLY LUCIANO MD
[2020-12-17 11:04] LABS: Absolute Lymphocyte Count 2.77 X10^3/uL (0.83-4.51); Absolute Neutrophil Count 2.9 X10^3/uL (2.0-7.7); Basophil# 0.06 X10^3/uL; Basophil% 0.8 % (0-1); Eosinophils% 9.6 % (0-5); Hematocrit 40.5 % (37-47); Hemoglobin 12.9 g/dL (12.0-15.0); Lymphocyte # 2.77 X10^3/ul (0.83-4.51); Lymphocyte % 38.2 % (19-41); Mean Corp Hgb Conc 31.9 g/dL (32-36); Mean Corpuscular Hgb 31.7 pg (27.0-32.0); Mean Corpuscular Volume 99.5 fL (81-99); Monocyte# 0.85 X10^3/uL; Monocyte% 11.7 % (0-10); NRBC Flagged by Analyzer 0 % (0-5); Neutrophil # 2.87 X10^3/uL (2.7-7.7); Neutrophil % 39.6 % (47-70); Platelet Count 411 K/mm3 (150-450); RBC Distribution Width CV 13.5 % (11.6-14.6); RBC Distribution Width SD 50.1 fl (35.1-43.9); Red Blood Count 4.07 M/mm3 (4.2-5.4); White Blood Count 7.3 K/mm3 (4.4-11.0)
[2020-12-17 11:20] LABS: ALB/GLOB Ratio 0.7 RATIO (0.9-2.4); AST(SGOT) 23 U/L (15-37); Alanine Aminotransfer ALT/SGPT 26 U/L (13-56); Albumin, Serum 2.9 g/dL (3.2-5.0); Alkaline Phosphatase 139 U/L (45-117); Anion Gap 4 (5-15); BUN 11 mg/dL (7-18); BUN/Creat Ratio 20.2 RATIO (10-20); Chloride 106 mmol/L (98-107); Creatinine, Serum 0.54 mg/dL (0.55-1.02); EST Glomerular Filtration Rate 119 mL/min (>60); Est Glom Filt Rate - Afr Amer 144 mL/min (>60); Estimated Creatinine Clearance 89.69 ml/min; Glucose 75 mg/dL (74-106); Protein, Total 6.9 g/dL (6.4-8.2); Sodium Level 140 mmol/L (136-145); Troponin-I HS 5 pg/mL (3.0-54.0)
[2020-12-17 12:43] VITALS: BP 143/97; PULSE 87; RESP 16; O2SAT 99
--- NOTE | 2020-12-17 13:18 | EDS_ITS ---
HPI History of Present Illness Chief Complaint: Neuro S/Sx Informant: patient Onset/Context/Timing Onset: Today Context: Sudden Onset Timing: Waxes and wanes Quality: Pressure Location: Occiput Worsened by: Talking Relieved by: Nothing Narrative Narrative: Patient presents with tremors, shortness of breath, and facial spasms that became worse today. Patient states the facial spasms are intermittent. Patient states that she feels like she had some shaking while she was driving today. Patient states she had some shortness of breath with this. Patient also admits to some pressure in the occipital area of her head. Patient states that the shortness of breath seemed to be worse whenever she was talking. Patient states she did take some Sudafed today. Patient states she also took Sudafed prior to her evaluation 2 days ago. Patient was seen here 2 days ago and had a stroke work-up which was negative. Patient states this included CT scan and MRI. Patient states her lab work-up was also normal. Prior similar symptoms: Yes PFSH PFSH Medical History Acid reflux Anemia Celiac disease Constipation Constipation due to pain medication Fractures involving multiple body regions Hiatal hernia Nausea & vomiting Pain Home Medications calcium carbonate 500 mg calcium (1,250 mg) tablet 500 mg PO BID 02/06/19 [History Last Taken Unknown] ergocalciferol (vitamin D2) 1,250 mcg (50,000 unit) capsule 50,000 unit PO CHAN #13 cap 02/06/19 [History Last Taken Unknown] diazepam 2 mg PO TID PRN PRN #10 tablet 12/17/20 [Rx Last Taken Unknown] Allergy/AdvReac Type Severity Reaction Status Date / Time gluten Allergy Nausea Verified 12/17/20 09:45 Family History Mother Asthma Heart disease Hypertension CVA (cerebral vascular accident) Thyroid disorder Father Heart disease CVA (cerebral vascular accident) Surgical History History of esophagogastroduodenoscopy (EGD) History of lumpectomy of right breast Hx laparoscopic cholecystectomy Hx of appendectomy Hx of section Hx of colonoscopy Social History Smoking Status: Unknown if ever smoked second hand exposure: No alcohol intake: never substance use type: does not use caffeine: Yes what type of physical activity do you participate in: none frequency: does not exercise ROS ROS ED Constitutional Constitutional ED: Denies chills or fever(s) Eyes Eyes: Denies blurry vision or change in vision ENT ENT ED: Reports rhinorrhea; Denies sore throat Cardiovascular Cardiovascular: Denies chest pain or palpitations Respiratory/Chest Respiratory/Chest: Reports dyspnea; Denies cough Gastrointestinal Gastrointestinal: Denies nausea or vomiting Genitourinary Genitourinary ED: Denies dysuria or hematuria Musculoskeletal Musculoskeletal: Denies back pain or neck pain Integumentary Denies abscess or rash Neurologic Neurologic: Reports headache(s); Denies weakness Allergic/Immunologic Allergic/Immunologic ED: Denies mouth swelling or urticaria EXAM Physical Exam Const Vital Signs: 12/17/20 09:42 12/17/20 12:43 Temperature 97.9 F Temperature Source Temporal Pulse Rate 79 87 Respiratory Rate 18 16 Blood Pressure 190/85 H 143/97 H Blood Pressure Mean 120 112 Pulse Ox 98 99 Oxygen Delivery Method Room Air Room Air Positive well nourished and well developed General Appearance ED: well developed HEENT Reports moist mucous membranes Neck supple and no JVD Resp normal respiratory effort and clear to auscultation bilaterally Cardio regular rate, regular rhythm and no murmurs GI normal to inspection, nondistended, normoactive bowel sounds and non-tender Palpation: soft Extremity normal to inspection General Extremety ED: Negative for edema or tenderness General Extremity: Negative for edema Neuro oriented x3, CN's II-XII intact bilaterally and no sensory deficits noted Sensorium / Orientation: alert Motor Exam: strength 5/5 throughout Psych mental status grossly normal Skin no rashes or lesions noted MDM MDM MDM Narrative Medical decision making narrative: EKG was obtained. On my interpretation, it showed a normal sinus rhythm with a rate of 67. AL interval, QRS interval, and QTc intervals were all normal. [place] was normal. There are no acute ST or T wave changes. CBC and comprehensive metabolic profile were obtained were within normal limits. High-sensitivity troponin was obtained and was normal. Patient was able to videotape one of her facial spasms while she was in the emergency department. This appeared to be muscle spasms of her left facial muscles. It did not appear to be a stroke. Since she had a recent stroke work-up, I do not feel repeat CT scan is necessary at this time. Patient was given a prescription for Valium to take as needed for muscle spasms. Patient was instructed to follow-up with her primary care physician as scheduled. Patient understood and was agreeable with the plan. All questions were answered. Lab Data Attestation: I reviewed the patient's lab results. Labs: Laboratory Results - last 24 hr 12/17/20 12/17/20 12/17/20 09:45 09:50 09:50 WBC 7.3 RBC 4.07 L Hgb 12.9 Hct 40.5 MCV 99.5 H MCH 31.7 MCHC 31.9 L RDW Std Deviation 50.1 H RDW Coeff of [place] 13.5 Plt Count 411 MPV 11.0 Immature Gran % (Auto) 0.100 Neut % (Auto) 39.6 L Lymph % (Auto) 38.2 [place] % (Auto) 11.7 H Eos % (Auto) 9.6 H Baso % (Auto) 0.8 Absolute Neuts (auto) 2.9 Absolute Lymphs (auto) 2.77 Nucleated RBC % 0 Sodium 140 Potassium 4.0 Chloride 106 Carbon Dioxide 30.0 Anion Gap 4 L BUN 11 Creatinine 0.54 L Estim Creat Clear Calc 89.69 Est GFR (MDRD) Af Amer 144 Est GFR (MDRD) Non-Af 119 BUN/Creatinine Ratio 20.2 H Glucose 75 Calcium 9.0 Total Bilirubin 0.20 AST 23 ALT 26 Alkaline Phosphatase 139 H Troponin I High Sens 5 Total Protein 6.9 Albumin 2.9 L Globulin 4.0 Albumin/Globulin Ratio 0.7 L POC Glucose 104 EKG Initial EKG: Attestation: I personally reviewed and interpreted this EKG as follows: Interpretation: Sinus Rhythm (67) and No Acute Injury Pattern Discharge Plan Triage Chief Complaint: Neuro S/Sx ED Provider: Jarett Delgado Dx/Rx/DC Orders Clinical Impression: Lightheadedness, Facial spasm Instructions: ED Dizziness, Uncertain Cause, ED Muscle Spasm Prescriptions: New diazepam [diazepam] 2 MG tablet 2 mg PO TID PRN PRN (Reason: Vertigo) Qty: 10 RF: 0 No Action ergocalciferol (vitamin D2) 50,000 unit capsule 50,000 unit PO CHAN Qty: 13 RF: 0 calcium carbonate [Calcium 500] 500 mg calcium (1,250 mg) tablet 500 mg PO BID RF: 0 Primary Care Provider: Wilmar Louis NP Referrals: Wilmar Louis NP, INSURANCE COMMISSIONER-C [Primary Care Provider] - Keep [facility] appointment Disposition Disposition: Home, Self Care
[2020-12-17 13:44] VITALS: BP 154/80; PULSE 78; RESP 16; O2SAT 99
== END 2020-12-17 13:46 | disposition home or self-care (01) ==
PROVIDERS: Emergency Provider Emergency Medicine; PCP Nurse Practitioner Family
DX: R42 Dizziness and giddiness (principal); M62.838 Other muscle spasm; Z82.0 Family history of epilepsy and other diseases of the nervous system
CPT/HCPCS: 80053; 82962; 84484; 85025; 93005; 96360; 99283; J7040

== ENCOUNTER → 2024-02-11 | Outpatient (CLI) | payer MEDICARE, BC, SELFPAY | END | disposition home or self-care (01) | PROVIDERS: PCP Nurse Practitioner Family; Referring Provider Ophthalmology; Visit Provider Ophthalmology | DX: G45.3 Amaurosis fugax (principal) | CPT/HCPCS: 93880 ==